=== PATIENT | male | born 1970 | race Caucasian/White ===

== ENCOUNTER 2017-10-03 18:38 | Inpatient (IN) | payer OTHER ==
[2017-10-03 23:21] LABS: ADD MAN DIFF? NO
[2017-10-03 23:24] LABS: WHITE BLOOD COUNT 14.1 10^3/ul (4.8-10.8)
[2017-10-03 23:24] LABS: BASOPHIL # 0.1 10^3/ul (0.0-0.1); BASOPHILS % 0.4 % (0.0-2.0); EOSINOPHILS # 0.2 10^3/ul (0.0-0.5); EOSINOPHILS % 1.6 % (0.0-7.0); HEMATOCRIT 47.5 % (42.0-52.0); HEMOGLOBIN 16.2 g/dl (14.0-18.0); LYMPHOCYTES # 3.5 10^3/ul (0.8-2.9); LYMPHOCYTES % 24.9 % (15.0-51.0); MEAN CORPUSCULAR HEMOGLOBIN 31.9 pg (29.0-33.0); MEAN CORPUSCULAR HGB CONC 34.1 g/dl (32.0-37.0); MEAN CORPUSCULAR VOLUME 93.5 fl (82.0-101.0); MEAN PLATELET VOLUME 10.2 fl (7.4-10.4); MONOCYTE # 1.2 10^3/ul (0.3-0.9); MONOCYTES % 8.2 % (0.0-11.0); NEUTROPHIL # 9.1 10^3/ul (1.6-7.5); NEUTROPHILS % 64.6 % (39.0-77.0); PLATELET COUNT 299 10^3/UL (140-415); RED BLOOD COUNT 5.08 10^6/ul (4.70-6.10); RED CELL DISTRIBUTION WIDTH 12.6 % (11.5-14.5)
[2017-10-03 23:40] LABS: ALANINE AMINOTRANSFERASE 81 IU/L (13-69); ALBUMIN 4.8 g/dl (3.3-4.9); ALBUMIN/GLOBULIN RATIO 1.06; ALKALINE PHOSPHATASE 114 IU/L (42-121); ANION GAP 17 (8-16); ASPARTATE AMINO TRANSFERASE 38 IU/L (15-46); BILIRUBIN,INDIRECT 0.4 mg/dl (0-1.1); BILIRUBIN,TOTAL 0.4 mg/dl (0.2-1.3); BLOOD UREA NITROGEN 13 mg/dl (7-20); CALCIUM 9.8 mg/dl (8.4-10.2); CARBON DIOXIDE 28 mmol/L (21-31); CHLORIDE 104 mmol/L (97-110); CREATININE 0.85 mg/dl (0.61-1.24); GLUCOSE 93 mg/dl (70-220); POTASSIUM 4.2 mmol/L (3.5-5.1); SODIUM 145 mmol/L (135-144); TOTAL PROTEIN 9.3 g/dl (6.1-8.1)
[2017-10-03 23:52] LABS: B-TYPE NATRIURETIC PEPTIDE 17 PG/ML (0-125)
[2017-10-04 00:03] LABS: TROPONIN-I < 0.012 ng/ml (0.00-0.12)
[2017-10-04] MEDS ORDERED: morphine 2 MG INJ IV (04:30)
[2017-10-04] MEDS ORDERED: BISACODYL (EC) 5 MG TAB PO (04:30)
[2017-10-04] MEDS ORDERED: NACL 0.9% 3 ML SYG IV (04:30)
[2017-10-04] MEDS: SOD CHLORIDE 0.9% 1,000 ML IV ×2 (04:30→17:21)
[2017-10-04] MEDS ORDERED: DOCUSATE SODIUM 100 MG CAP PO (04:30)
[2017-10-04] MEDS ORDERED: ONDANSETRON 4 MG INJ IV (04:30)
[2017-10-04] MEDS ORDERED: NITROGLYCERIN (SL) 0.4 MG TAB SL (04:30)
[2017-10-04] MEDS ORDERED: ACETAMINOPHEN 325 MG TAB PO (04:30)
[2017-10-04 06:06] LABS: ADD MAN DIFF? NO
[2017-10-04 06:20] LABS: WHITE BLOOD COUNT 11.7 10^3/ul (4.8-10.8)
[2017-10-04 06:20] LABS: BASOPHIL # 0.1 10^3/ul (0.0-0.1); BASOPHILS % 0.4 % (0.0-2.0); EOSINOPHILS # 0.3 10^3/ul (0.0-0.5); EOSINOPHILS % 2.3 % (0.0-7.0); HEMATOCRIT 46.4 % (42.0-52.0); HEMOGLOBIN 15.8 g/dl (14.0-18.0); LYMPHOCYTES # 2.8 10^3/ul (0.8-2.9); LYMPHOCYTES % 23.9 % (15.0-51.0); MEAN CORPUSCULAR HEMOGLOBIN 31.9 pg (29.0-33.0); MEAN CORPUSCULAR HGB CONC 34.1 g/dl (32.0-37.0); MEAN CORPUSCULAR VOLUME 93.7 fl (82.0-101.0); MEAN PLATELET VOLUME 10.3 fl (7.4-10.4); MONOCYTE # 1.1 10^3/ul (0.3-0.9); MONOCYTES % 9.8 % (0.0-11.0); NEUTROPHIL # 7.4 10^3/ul (1.6-7.5); NEUTROPHILS % 63.3 % (39.0-77.0); PLATELET COUNT 266 10^3/UL (140-415); RED BLOOD COUNT 4.95 10^6/ul (4.70-6.10); RED CELL DISTRIBUTION WIDTH 12.5 % (11.5-14.5)
[2017-10-04 06:31] LABS: D-DIMER 268.26 ng/ml (<460)
[2017-10-04 06:47] LABS: CREATINE KINASE 114 IU/L (23-200)
[2017-10-04 06:49] LABS: C-REACTIVE PROTEIN 0.9 mg/dl (0.0-0.9)
[2017-10-04 06:50] LABS: ALANINE AMINOTRANSFERASE 65 IU/L (13-69); ALBUMIN 4.3 g/dl (3.3-4.9); ALBUMIN/GLOBULIN RATIO 1.13; ALKALINE PHOSPHATASE 96 IU/L (42-121); ANION GAP 15 (8-16); ASPARTATE AMINO TRANSFERASE 36 IU/L (15-46); BILIRUBIN,INDIRECT 0.8 mg/dl (0-1.1); BILIRUBIN,TOTAL 0.8 mg/dl (0.2-1.3); BLOOD UREA NITROGEN 13 mg/dl (7-20); CALCIUM 9.3 mg/dl (8.4-10.2); CARBON DIOXIDE 27 mmol/L (21-31); CHLORIDE 107 mmol/L (97-110); CHOL/HDL RATIO 4.2 RATIO; CHOLESTEROL 208 mg/dl (100-200); CREATININE 0.79 mg/dl (0.61-1.24); GLUCOSE 82 mg/dl (70-220); HDL CHOLESTEROL 49 mg/dl (27-67); LDL CHOLESTEROL,CALCULATED 124 mg/dl; MAGNESIUM 2.3 mg/dl (1.7-2.5); SODIUM 145 mmol/L (135-144); TOTAL PROTEIN 8.1 g/dl (6.1-8.1); TRIGLYCERIDES 173 mg/dl (0-149)
[2017-10-04 06:55] LABS: CK INDEX 0.7; CK-MB 0.81 ng/ml (0.0-2.4); TROPONIN-I < 0.012 ng/ml (0.00-0.12)
[2017-10-04 07:54] LABS: HEMOGLOBIN A1C 5.3 % (0-5.9)
[2017-10-04 13:43] LABS: CREATINE KINASE 87 IU/L (23-200)
[2017-10-04 13:59] LABS: CK INDEX 0.5
[2017-10-04 14:10] LABS: CK-MB 0.47 ng/ml (0.0-2.4); TROPONIN-I < 0.012 ng/ml (0.00-0.12)
[2017-10-05] MEDS: SOD CHLORIDE 0.9% 1,000 ML IV (05:45)
== END 2017-10-05 12:08 | disposition home or self-care (01) | DRG 313 ==
LOC: TEL 10-04 02:37 → E/R 18:38
DX: R07.89 Other chest pain (principal); M79.605 Pain in left leg; R51 Headache
CPT/HCPCS: 36415; 70450; 70551; 71045; 80053; 80061; 82550; 82553; 83036; 83735; 83880; 84443; 84484; 85025; 85378; 85651; 86140; 93005; 93306; 93970; 99285-25